=== PATIENT | female | born 1985 | race Caucasian/White ===

== ENCOUNTER 2021-05-26 08:31 | Inpatient (IN) | payer OTHER ==
[2021-05-24 13:41] LABS: COVID AG,FIA SOURCE NASAL SWAB
[~2021-05-26] VITALS: Ht 160 cm; Wt 61.4 kg
[~2021-05-26 08:31] MED LIST: BUPIVACAINE LIPOSOME/PF 1.3%-13.3MG/ML SUSPENSION 20 ML VIAL INJ ONE; ETHYL ALCOHOL 62% ANTISEPTIC NASAL INHALANT 0.6 ML AMPUL NASAL ONE; RINGERS SOLUTION,LACTATED 1,000 ML IV ONE; SODIUM CHLORIDE 0.9% 0 ML ONE; VANCOMYCIN HCL 1 GM/VIAL ONE
[2021-05-26 08:46] LABS: COVID AG,FIA SOURCE NASAL SWAB
[2021-05-26] MEDS ORDERED: ONDANSETRON HCL 4 MG/2 ML VIAL IVP PRN ×2 (09:30→12:15)
[2021-05-26] MEDS ORDERED: MEPERIDINE-PF 25 MG/ML VIAL IVP PRN (09:30)
[2021-05-26] MEDS ORDERED: BUPIVACAINE LIPOSOME/PF 1.3%-13.3MG/ML SUSPENSION 20 ML VIAL INJ ONE (09:30)
[2021-05-26] MEDS ORDERED: HYDROmorphone 2 MG/ML VIAL IVP PRN ×2 (09:30→12:15)
[2021-05-26] MEDS ORDERED: BUPIVACAINE HCL/PF 0.5% 30 ML VIAL ONE (09:33)
[2021-05-26] MEDS ORDERED: HYDR2TAB37 PO (09:34)
[2021-05-26] MEDS ORDERED: BUPR600F2 PO (09:35)
[2021-05-26] MEDS ORDERED: PREG50 PO (09:35)
[2021-05-26] MEDS ORDERED: TIZA-211 PO (09:36)
[2021-05-26] MEDS ORDERED: IBUP-1889 PO (09:37)
[2021-05-26] MEDS ORDERED: SODIUM CHLORIDE 0.9% 250 ML IV ONE (10:42)
[2021-05-26] MEDS ORDERED: VANCOMYCIN HCL 1 GM/VIAL TP ONE (10:50)
[2021-05-26] MEDS ORDERED: VANCOMYCIN HCL 1 GM/VIAL ONE (11:47)
[2021-05-26] MEDS ORDERED: RINGERS SOLUTION,LACTATED 1,000 ML IV ONE (11:58)
[2021-05-26] MEDS ORDERED: 0.9% SODIUM CHLORIDE 10 ML VIAL IVP ONE (12:00)
[2021-05-26] MEDS ORDERED: KETOROLAC TROMETHAMINE 60 MG/2 ML VIAL IM ONE (12:00)
[2021-05-26] MEDS ORDERED: ROCURONIUM BROMIDE 10 MG/ML 5 ML VIAL IVP ONE (12:00)
[2021-05-26] MEDS ORDERED: KETAMINE HCL 50 MG/ML 10 ML VIAL IVP ONE (12:00)
[2021-05-26] MEDS ORDERED: HYDROmorphone 2 MG/ML VIAL IVP ONE ×3 (12:00→17:00)
[2021-05-26] MEDS ORDERED: PROPOFOL 1% 20 ML VIAL IVP ONE (12:00)
[2021-05-26] MEDS ORDERED: DEXAMETHASONE SOD PHOS 4 MG/ML VIAL IVP ONE (12:00)
[2021-05-26] MEDS ORDERED: MIDAZOLAM HCL 2 MG/2 ML VIAL IVP ONE (12:00)
[2021-05-26] MEDS ORDERED: FentaNYL CITRATE PF 100 MCG/2 ML VIAL IVP ONE (12:00)
[2021-05-26] MEDS ORDERED: ONDANSETRON HCL 4 MG/2 ML VIAL IVP ONE (12:00)
[2021-05-26] MEDS ORDERED: LIDOCAINE/PF 2% 5 ML VIAL IM ONE (12:00)
[2021-05-26] MEDS ORDERED: DEXAMETHASONE SOD PHOS 4 MG/ML VIAL IVP PRN (12:15)
[2021-05-26] MEDS ORDERED: ZOLPIDEM TARTRATE 10 MG TABLET PO PRN (12:15)
[2021-05-26] MEDS ORDERED: DiphenhydrAMINE HCL 50 MG/ML VIAL IVP PRN (12:15)
[2021-05-26] MEDS ORDERED: OxyCODONE HCL 5 MG IR TABLET PO PRN (12:15)
[2021-05-26] MEDS ORDERED: MAG HYDROX/AL HYDROX/SIMETH 30 ML SUSP UDCUP PO PRN (12:15)
[2021-05-26] MEDS ORDERED: BENZOCAINE/MENTHOL LOZENGE PO PRN (12:15)
[2021-05-26] MEDS ORDERED: HYDROmorphone 2 MG/ML VIAL ONE ×2 (12:29→13:24)
[2021-05-26] MEDS: HYDROmorphone 2 MG/ML VIAL IVP PRN ×6 (12:31→21:42)
[2021-05-26] MEDS ORDERED: FentaNYL CITRATE PF 100 MCG/2 ML VIAL ONE (12:42)
[2021-05-26] MEDS: FentaNYL CITRATE PF 100 MCG/2 ML VIAL IVP PRN ×2 (12:43→12:52)
[2021-05-26] MEDS ORDERED: ACETAMINOPHEN 1000 MG/ISO-OSM 100 ML IV ONE (13:22)
[2021-05-26] MEDS: ACETAMINOPHEN 1000 MG/ISO-OSM 100 ML IV SCH ×2 (13:29→20:08)
[2021-05-26] MEDS ORDERED: DIAZEPAM 5 MG/ML 2 ML SYRINGE IVP ONE (13:30)
[2021-05-26 14:45] VITALS: BP 113/71
[2021-05-26] MEDS ORDERED: BISACODYL 10 MG RECTAL RECTAL SUPPOSITORY PR PRN (15:00)
[2021-05-26] MEDS ORDERED: ACETAMINOPHEN 325 MG TABLET PO PRN (15:00)
[2021-05-26] MEDS ORDERED: ZOLPIDEM TARTRATE 5 MG TABLET PO PRN (15:00)
[2021-05-26] MEDS ORDERED: MAGNESIUM HYDROXIDE SUSPENSION 30 ML UDCUP PO PRN (15:00)
[2021-05-26] MEDS: OxyCODONE HCL 5 MG IR TABLET PO PRN ×2 (15:53→22:41)
[2021-05-26] MEDS ORDERED: SODIUM CHLORIDE 0.9% 500 ML IV ONE (16:54)
[2021-05-26] MEDS: CeFAZolin 1 GM/DEXTROSE 50 ML IV SCH ×2 (17:03→23:56)
[2021-05-26] MEDS: DEXAMETHASONE SOD PHOS 4 MG/ML VIAL IVP SCH ×2 (17:03→23:56)
[2021-05-26] MEDS ORDERED: ACETAMINOPHEN 1000 MG/ISO-OSM 100 ML IV SCH (18:00)
[2021-05-26 19:40] VITALS: BP 103/65
[2021-05-26] MEDS: OXYGEN THERAPY IH SCH (20:06)
[2021-05-26] MEDS: PREGABALIN 50 MG CAPSULE PO SCH (20:07)
[2021-05-26] MEDS: DOCUSATE SODIUM 100 MG CAPSULE PO SCH (20:07)
[2021-05-26] MEDS: TiZANidine HCL 4 MG TABLET PO SCH (20:07)
[2021-05-26] MEDS ORDERED: DOCUSATE SODIUM 100 MG CAPSULE PO SCH (21:00)
[2021-05-26] MEDS ORDERED: DIAZEPAM 5 MG/ML 2 ML SYRINGE IVP PRN (21:30)
[2021-05-27] MEDS: HYDROmorphone 2 MG/ML VIAL IVP PRN ×8 (00:44→20:22)
[2021-05-27] MEDS: ACETAMINOPHEN 1000 MG/ISO-OSM 100 ML IV SCH ×2 (02:59→07:53)
[2021-05-27 04:20] VITALS: BP 94/56
[2021-05-27] MEDS: OxyCODONE HCL 5 MG IR TABLET PO PRN ×3 (04:24→14:06)
[2021-05-27] MEDS: DEXAMETHASONE SOD PHOS 4 MG/ML VIAL IVP SCH ×2 (05:20→12:24)
[2021-05-27 06:31] LABS: BASOPHILS % (AUTO) 0.1 % (0.0-2.0); EOSINOPHILS % (AUTO) 0 % (1.0-6.0); HEMATOCRIT 36.4 % (36-46); HEMOGLOBIN 12.5 g/dL (12.0-16.0); LYMPHOCYTES # (AUTO) 1.4 K/uL (1.0-4.8); MEAN CORPUSCULAR HEMOGLOBIN 31.5 pg (26.0-34.0); MEAN CORPUSCULAR HGB CONC 34.5 G/dL (31.0-37.0); MEAN CORPUSCULAR VOLUME 91 fL (80-100); MONOCYTES # (AUTO) 0.4 K/uL (0.1-1.0); NEUTROPHILS # (AUTO) 18.2 K/uL (1.8-7.7); PLATELET COUNT (AUTO) 346 K/uL (150-450); RED BLOOD CELL COUNT(AUTO) 3.99 MIL/uL (4.00-5.20); RED CELL DISTRIBUTION WIDTH 12.2 % (11.5-14.5)
[2021-05-27 06:32] LABS: NEUTROPHILS % (AUTO) 90.9 % (40.0-70.0)
[2021-05-27 07:02] LABS: ANION GAP 9 mmol/L (8-16); CALCIUM, TOTAL 8.7 mg/dL (8.8-10.5); CARBON DIOXIDE 26 mmol/L (22-29); CHLORIDE 103 mmol/L (98-107); GLOMERULAR FILTR. RATE CALC > 60 mL/min (>60); GLUCOSE,RANDOM 199 mg/dL (70-110); POTASSIUM 4.2 mmol/L (3.5-5.1); SODIUM SERUM 138 mmol/L (136-145); UREA NITROGEN, BLOOD 7 mg/dL (7-18)
[2021-05-27] MEDS: DOCUSATE SODIUM 100 MG CAPSULE PO SCH ×2 (07:52→20:22)
[2021-05-27] MEDS: FAMOTIDINE 20 MG TABLET PO SCH (07:52)
[2021-05-27] MEDS: OXYGEN THERAPY IH SCH ×2 (07:53→20:29)
[2021-05-27 08:20] VITALS: BP 100/61
[2021-05-27 15:51] VITALS: BP 112/66
[2021-05-27] MEDS: OxyCODONE HCL/ACETAMINOPHEN 10-325 MG TABLET PO PRN ×2 (18:22→21:48)
[2021-05-27 19:28] VITALS: BP 121/66
[2021-05-27] MEDS: PREGABALIN 50 MG CAPSULE PO SCH (20:22)
[2021-05-27] MEDS: TiZANidine HCL 4 MG TABLET PO SCH (20:22)
[2021-05-28] MEDS: HYDROmorphone 2 MG/ML VIAL IVP PRN ×5 (03:11→11:54)
[2021-05-28 03:27] VITALS: BP 107/80
[2021-05-28] MEDS: OxyCODONE HCL/ACETAMINOPHEN 10-325 MG TABLET PO PRN ×2 (04:08→10:40)
[2021-05-28 08:08] VITALS: BP 120/71
[2021-05-28] MEDS: OXYGEN THERAPY IH SCH (08:54)
[2021-05-28] MEDS: DOCUSATE SODIUM 100 MG CAPSULE PO SCH (08:57)
[2021-05-28] MEDS: FAMOTIDINE 20 MG TABLET PO SCH (08:57)
== END 2021-05-28 16:15 | disposition home or self-care (01) | DRG 518 ==
LOC: 6N 08:31
PROVIDERS: ADMIT Neurological Surgery; ATTEND Internal Medicine
PROC: 0SR40JZ Replacement of Lumbosacral Disc with Synthetic Substitute, Open Approach (ICD-10-PCS; 2021-05-26)
PROC: 4A11X4G Monitoring of Peripheral Nervous Electrical Activity, Intraoperative, External Approach (ICD-10-PCS; 2021-05-26)
PROC: 0SB40ZZ Excision of Lumbosacral Disc, Open Approach (ICD-10-PCS; principal; 2021-05-26 10:30)
DX: M51.37 Other intervertebral disc degeneration, lumbosacral region (principal); M51.16 Intervertebral disc disorders with radiculopathy, lumbar region; G89.29 Other chronic pain; Z20.822 Contact with and (suspected) exposure to COVID-19; D72.829 Elevated white blood cell count, unspecified
CPT/HCPCS: 80048; 84703; 85025; 87081; 97116; 97162; 97530; 97535; C9290; G0238; J0131; J0690; J1100; J1170; J1885; J2250; J2405; J2704; J3010; J3370; J3490; J7040; J7050; J7120